=== PATIENT | male | born 1995 | race Caucasian/White ===

== ENCOUNTER 2018-08-19 22:42 | Emergency (ER) ==
[~2018-08-19] VITALS: Ht 180.3 cm; Wt 77.1 kg
[2018-08-19 22:42] VITALS: BP 135/76
== END 2018-08-20 00:39 | disposition home or self-care (01) ==
LOC: ER 22:53
DX: S62.234A Other nondisplaced fracture of base of first metacarpal bone, right hand, initial encounter for closed fracture (principal); X58.XXXA Exposure to other specified factors, initial encounter; Y93.71 Activity, boxing; Y92.89 Other specified places as the place of occurrence of the external cause; Y99.8 Other external cause status
CPT/HCPCS: 73130-TC